=== PATIENT | female | born 1990 | race Caucasian/White ===

== ENCOUNTER 2020-01-20 12:56 | Emergency (ER) | payer BC ==
[~2020-01-20] VITALS: Ht 157.5 cm; Wt 43.1 kg
[2020-01-20 12:59] VITALS: Ht 157.5 cm; Wt 43.1 kg
[2020-01-20 14:55] VITALS: BP 100/66
== END 2020-01-20 14:55 | disposition home or self-care (01) ==
LOC: ED 12:56
DX: G44.209 Tension-type headache, unspecified, not intractable (principal); Z88.6 Allergy status to analgesic agent
CPT/HCPCS: J7030